=== PATIENT | male | born 1960 | race Caucasian/White ===

== ENCOUNTER 2017-06-11 14:15 | Emergency (ER) | payer OTHER ==
[2017-06-11 14:22] VITALS: BP 163/100; PULSE 80; RESP 16; O2SAT 96
--- NOTE | 2017-06-11 14:36 | EDPHY ---
H & P Stated Complaint: hit skiing, R shoulder pain; no other complaints Time Seen by Provider: 06/11/17 14:24 HPI/ROS: Chief Complaint: Shoulder injury HPI: 57-year-old male was skiing this afternoon when he collided with a snow boarder. Patient initially did not have any pain but has since developed pain in the upper back portion of his right shoulder. He has mild decreased range of motion secondary to pain. Does have a history of a prior rotator cuff repair. He did not hit his head. No loss of consciousness. No neck pain. No back pain. No chest pain. No other extremity injuries. ROS: 10 point Review of Systems is negative except as noted in the HPI. Family History: [non-contributory] Physical Exam: General: Awake, alert, no acute distress Right shoulder: He has no clavicular tenderness. He does know proximal humerus tenderness. He has no tenderness at the AC joint. There is some tenderness over the supraspinatus reproducing his presenting complaint. He does have discomfort with abduction past 90. Skin: No rash - Personal History Current Tetanus/Diphtheria Vaccine: No - Medical/Surgical History Hx Asthma: No Hx Chronic Respiratory Disease: No Hx Diabetes: No Hx Cardiac Disease: Yes Hx Renal Disease: No Hx Cirrhosis: No Hx Alcoholism: No Hx HIV/AIDS: No Hx Splenectomy or Spleen Trauma: No Other PMH: appy, HTN - Social History Smoking Status: Never smoked Constitutional: Initial Vital Signs Temperature (C) 36.7 C 06/11/17 14:20 Heart Rate 80 06/11/17 14:20 Respiratory Rate 16 06/11/17 14:20 Blood Pressure 163/100 H 06/11/17 14:20 O2 Sat (%) 96 06/11/17 14:20 O2 Delivery Mode Room Air Allergies/Adverse Reactions: No Known Allergies Allergy (Unverified 06/11/17 14:20) Home Medications: Medication Instructions Recorded Amlodipine Besylate 06/11/17 Medical Decision Making - Diagnostics Imaging Results: Imaging Impressions Shoulder X-Ray 06/11/17 14:32 Impression: Negative. No acute fracture or evidence of AC separation. Imaging: I viewed and interpreted images myself ED Course/Re-evaluation: 57-year-old male status post shoulder injury. X-rays negative. I suspect an injury to his supraspinatus. Will discharge with follow up with Orthopedics, return for worsening. Departure - Departure Disposition: Home, Routine, Self-Care Clinical Impression: Shoulder sprain Condition: Good Instructions: Shoulder Sprain (ED) Additional Instructions: Follow up with your orthopedist in about a week if symptoms are not improving. Alternate acetaminophen (1000 mg) with ibuprofen (400 mg) every 4 hours as needed for pain. Apply ice for 15 min of every 2 hr while awake. Referrals: [facility]ENRI[facility] PRECIADO [Other] - As per Instructions
[2017-06-11 15:59] VITALS: TEMP 97.5
== END 2017-06-11 15:59 | disposition home or self-care (01) ==
DX: S43.401A Unspecified sprain of right shoulder joint, initial encounter (principal); I10 Essential (primary) hypertension; V00.328A Other snow-ski accident, initial encounter; Y99.8 Other external cause status; Y93.23 Activity, snow (alpine) (downhill) skiing, snowboarding, sledding, tobogganing and snow tubing